=== PATIENT | female | born 1945 | race Caucasian/White ===

== ENCOUNTER 2018-03-15 12:56 | Emergency (ER) | payer MEDICARE, OTHER ==
[2018-03-15 13:45] LABS: ABS Basophils 0.1 10^3/ul (0-0.2); ABS Eosinophils 0.1 10^3/ul (0-0.6); ABS Lymphocytes 2.5 10^3/ul (1.0-4.8); ABS Monocytes 0.3 10^3/ul (0-0.8); ABS Nucleated RBC 0 10^3/ul; Eosinophil % 1.4 % (0-6); Hematocrit 40 % (35-47); Hemoglobin 13.8 g/dl (12.0-16.0); Lymphocyte % 41.6 % (25-47); Mean Corpuscular HGB Conc 35 g/dl (31-36); Mean Corpuscular Hemoglobin 30 pg (27-31); Mean Corpuscular Volume 86 fL (80-97); Mean Platelet Volume 7.1 um3 (7.4-10.4); Nucleated Red Blood Cells % 0.1; Platelet Count 320 10^3/ul (150-450); Red Blood Count 4.64 10^6/ul (4.0-5.4); Red Cell Distribution Width 13 % (10.5-15); White Blood Count 5.9 10^3/ul (3.5-10.8)
[2018-03-15 14:00] LABS: EGFR Non-African American 62.5 (>60)
--- NOTE | 2018-03-15 14:11 | RAD ---
Indication: Headaches. CT of the brain was performed without IV contrast. Ventricular structures are midline. No midline shift is noted. The extraction spaces are unremarkable. There is no evidence of intracranial mass or hemorrhage. No other high or low density lesions are identified. Mastoid air cells and paranasal sinuses are otherwise unremarkable. IMPRESSION: There is no evidence of intracranial mass or hemorrhage present.
[2018-03-15 16:14] VITALS: BP 142/93
--- NOTE | 2018-03-15 19:32 | ED ---
Sugar Toney Thomas, scribed for Juan Rasmussen MD on 03/15/18 at 1358 . Headache - HPI Summary HPI Summary: The patient is a 72 year old female who was playing bridge at 11:30 when she began to develop a dull frontal headache. She describes sparkles in her field of vision. She also reports an inability to recall names that she normally remembers. The patient was also nauseated. All of her symptoms are now relieved except for a mild headache that persists. The patient denies motor weakness. She had a similar headache four days ago. - History Of Current Complaint Chief Complaint: EDHeadache Stated Complaint: HEADACHE-DR SENT Time Seen by Provider: 03/15/18 13:04 Hx Obtained From: Patient Onset/Duration: Started hours ago, Still Present Initially Headache Was: Moderate Currently Pain Is: Mild Timing: Constant Character: Dull Location of Headache: Frontal Aggravating Factor: Nothing Allevating Factors: Nothing Associated Signs And Symptoms: Other (Noted In Comments) - Visual changes, nausea; NEGATIVE: motor weakness - Allergies/Home Medications Allergies/Adverse Reactions: Allergies Allergy/AdvReac Type Severity Reaction Status Date / Time Penicillins Allergy See Comment Verified 03/15/18 13:08 Sulfa (Sulfonamide Allergy See Comment Verified 03/15/18 13:08 Antibiotics) ENVIRONMENTAL/SEASONAL Allergy STUFFY Uncoded 03/15/18 13:08 HAYFEVER Home Medications: Home Medications Janes/D3/Mag11/Zinc/Pot Operator/Jesus/Bor [Caltrate 600+D Plus] 1 tab PO DAILY 03/15/18 [ History Confirmed 03/15/18] Multivitamins/Minerals TAB* [Theragran/minerals TAB*] 1 tab PO DAILY 03/15/18 [ History Confirmed 03/15/18] PMH/Surg Hx/FS Hx/Imm Hx Respiratory History: Reports: Hx Sleep Apnea - current CPAP user GI History: Reports: Hx Gastroesophageal Reflux Disease - OCCASIONAL Musculoskeletal History: Reports: Hx Osteoporosis Sensory History: Reports: Hx Cataracts, Hx Contacts or Glasses - GLASSES Denies: Hx Hearing Aid Opthamlomology History: Reports: Hx Cataracts, Hx Contacts or Glasses - GLASSES Neurological History: Reports: Hx Seizures - HX OF IN 1995 X 1 R/T BACK PROBLEM - Cancer History Hx Chemotherapy: No Hx Radiation Therapy: No - Surgical History Surgery Procedure, Year, and Place: 2011 RIGHT CATARACT EXTRACTION WITH IOL IMPLANT, [facility] [place]. TONSILLECTOMY AGE 7. COLONOSCOPY, [facility] [place] Hx Anesthesia Reactions: Yes - OVER MEDICATED WITH COLONOSCOPY, Infectious Disease History: No Infectious Disease History: Denies: Traveled Outside the [place] in Last 30 Days - Family History Known Family History: Positive: Other - Patient denies relevant FHx - Social History Alcohol Use: Daily Substance Use Type: Reports: None Smoking Status (MU): Never Smoked Tobacco Review of Systems Negative: Fever Eyes: Other - Visual changes Positive: Nausea Neurological: Other - Inability to recall names; NEGATIVE: motor weakness Positive: Headache All Other Systems Reviewed And Are Negative: Yes Physical Exam - Summary Physical Exam Summary: Appearance: The patient is well-nourished in no acute distress and in no acute pain. Skin: The skin is warm and dry and skin color reflects adequate perfusion. HEENT: The head is normocephalic and atraumatic. The pupils are equal and reactive. The conjunctivae are clear and without drainage. Nares are patent and without drainage. Mouth reveals moist mucous membranes and the throat is without erythema and exudate. The external ears are intact. The ear canals are patent and without drainage. The tympanic membranes are intact. Neck: the neck is supple with full range of motion and non-tender. There are no carotid bruits. There is no neck vein distension. Respiratory: Chest is non-tender. Lungs are clear to auscultation and breath sounds are symmetrical and equal. Cardiovascular: Heart is regular rate and rhythm. There is no murmur or rub auscultated. There is no peripheral edema and pulses are symmetrical and equal. Abdomen: The abdomen is soft and non-tender. There are normal bowel sounds heard in all four quadrants and there is no organomegaly palpated. Musculoskeletal: There is no back tenderness noted. Extremities are non-tender with full range of motion. There is good capillary refill. There is no peripheral edema or calf tenderness elicited. Neurological: Patient is alert and oriented to person, place and time. The patient has symmetrical motor strength in all four extremities. Cranial nerves are grossly intact. Deep tendon reflexes are symmetrical and equal in all four extremities. Psychiatric: The patient has an appropriate affect and does not exhibit any anxiety or depression. Triage Information Reviewed: Yes Vital Signs On Initial Exam: Initial Vitals Pulse BP Pulse Ox 96 179/94 100 03/15/18 13:12 03/15/18 13:12 03/15/18 13:12 Vital Signs Reviewed: Yes Diagnostics - Vital Signs Vital Signs Pulse BP Pulse Ox 03/15/18 13:42 93 163/103 100 03/15/18 13:35 96 166/81 100 03/15/18 13:13 94 100 03/15/18 13:12 96 179/94 100 - Laboratory Lab Results: Lab Results 03/15/18 Range/Units 13:38 WBC 5.9 (3.5-10.8) 10^3/ul RBC 4.64 (4.0-5.4) 10^6/ul Hgb 13.8 (12.0-16.0) g/dl Hct 40 (35-47) % MCV 86 (80-97) fL MCH 30 (27-31) pg MCHC 35 (31-36) g/dl RDW 13 (10.5-15) % Plt Count 320 (150-450) 10^3/ul MPV 7.1 L (7.4-10.4) um3 Neut % (Auto) 50.7 (38-83) % Lymph % (Auto) 41.6 (25-47) % [place] % (Auto) 5.4 (0-7) % Eos % (Auto) 1.4 (0-6) % Baso % (Auto) 0.9 (0-2) % Absolute Neuts (auto) 3.0 (1.5-7.7) 10^3/ul Absolute Lymphs (auto) 2.5 (1.0-4.8) 10^3/ul Absolute Monos (auto) 0.3 (0-0.8) 10^3/ul Absolute Eos (auto) 0.1 (0-0.6) 10^3/ul Absolute Basos (auto) 0.1 (0-0.2) 10^3/ul Absolute Nucleated RBC 0 10^3/ul Nucleated RBC % 0.1 Result Diagrams: 03/15/18 13:38 03/15/18 13:38 Lab Statement: Any lab studies that have been ordered have been reviewed, and results considered in the medical decision making process. - Radiology CXR Xray Interpretation: No Acute Changes - IMPRESSION: There is no evidence of intracranial mass or hemorrhage present. Dr. Rasmussen has reviewed this report. Radiology Interpretation Completed By: Radiologist Headache Course/Dx - Course Course Of Treatment: Ms. Baca had an unusual PUTNAM today that had almost completely resolved on arrival to the department. She had a dull frontal PUTNAM that developed shortly after she had 'sparkles' in her vision. She also was having what she describes as 'memory problems' but sound more like an expressive aphasia to me. On arrival she had only a mild frontal PUTNAM. She had a similar PUTNAM 4 days ago except for the memory problems. Her exam was unremarkable. I spoke with Dr. Osorio who felt that htis was likely migrainous and recommended CT and labs which were WNL. He is going to F/U with her in the office. - Diagnoses Provider Diagnoses: Headache - Physician Notifications Discussed Care Of Patient With: Wilian Osorio Time Discussed With Above Provider: 13:57 Instructed by Provider To: Other - Dr. Osorio, neurology, reports that a Code Cooper is not necessary. Discharge - Sign-Out/Discharge Documenting (check all that apply): Discharge/Admit/Transfer - Discharge Plan Condition: Stable Disposition: HOME Patient Education Materials: General Headache (ED) Referrals: Markell Lambert MD [Primary Care Provider] - 3 Days Wilian Osorio MD [Medical Doctor] - 3 Days Additional Instructions: Follow up with your primary care physician in three days. Follow up with Dr. Osorio, neurology, in three days. Return to the emergency department for any new or worsening symptoms. - Billing Disposition and Condition Condition: STABLE Disposition: HOME The documentation as recorded by the Sugar mcmullen Thomas accurately reflects the service I personally performed and the decisions made by me, Juan Rasmussen MD.
== END 2018-03-15 16:14 | disposition home or self-care (01) ==
LOC: ED 12:56
DX: R51 Headache (principal); R11.0 Nausea; Z87.19 Personal history of other diseases of the digestive system
CPT/HCPCS: 36415; 70450; 80053; 85025; 86140; 99283

== ENCOUNTER 2021-05-02 12:35 | Observation (INO) ==
[2021-05-02] MEDS ORDERED: NS 0.9% 1000 ml BAG 1,000 ML IV ONE (13:39)
[2021-05-02 14:33] LABS: ABS Lymphocytes 0.4 10^3/ul (1.0-4.8); ABS Monocytes 0.2 10^3/ul (0-0.8); ABS Neutrophils 2.6 10^3/ul (1.5-7.7); Eosinophil % 0.1 %; Hematocrit 44 % (35-47); Hemoglobin 14.9 g/dL (12.0-16.0); Lymphocyte % 13.8 %; Mean Corpuscular HGB Conc 34 g/dL (31-36); Mean Corpuscular Hemoglobin 30 pg (27-31); Mean Corpuscular Volume 89 fL (80-97); Nucleated Red Blood Cells % 0.5; Red Blood Count 4.91 10^6 /uL (3.70-4.87); Red Cell Distribution Width 14 % (10-15); White Blood Count 3.2 10^3/uL (3.5-10.8)
[2021-05-02 14:40] LABS: ALT 30 U/L (7-52); Albumin 4.6 g/dL (3.2-5.2); Albumin/Globulin Ratio 1.3 (1-3); Alkaline Phosphatase 84 U/L (35-149); Blood Urea Nitrogen 10 mg/dL (6-24); C Reactive Protein 114.21 mg/L (<8.01); CO2 Carbon Dioxide 23 mmol/L (22-32); Calcium 9.1 mg/dL (8.6-10.3); Chloride 86 mmol/L (101-111); EGFR African American 92.8 (>60); EGFR Non-African American 76.7 (>60); Globulin 3.5 g/dL (2-4); Glucose 108 mg/dL (70-100); Total Protein 8.1 g/dL (6.4-8.9)
[2021-05-02 15:08] LABS: Mean Platelet Volume 8.2 fL (7.4-10.4); Platelet Count 64 10^3/uL (150-450)
[2021-05-02 15:24] LABS: Sodium 120 mmol/L (135-145)
[2021-05-02 15:26] LABS: Anion Gap 11 mmol/L (2-11)
[2021-05-02 17:25] LABS: Magnesium 1.7 mg/dL (1.9-2.7); Potassium Redraw 4.1 mmol/L (3.5-5.0)
[2021-05-02 18:06] LABS: Urine Appearance Clear; Urine Bilirubin Negative (Negative); Urine Blood 2+ (Negative); Urine Color Yellow; Urine Glucose Negative (Negative); Urine Ketones 1+ (Negative); Urine Nitrite Negative (Negative); Urine Protein Negative (Negative); Urine Specific Gravity 1.005 (1.002-1.030); Urine Urobilinogen Negative (Negative)
[2021-05-02 18:30] LABS: Urine Bacteria 1+ (Absent); Urine Red Blood Cell 2+(6-10/hpf) (Absent); Urine Squamous Epithelial Cell Present (Absent); Urine White Blood Cell Trace(0-5/hpf) (Absent)
[2021-05-02] MEDS ORDERED: Magnesium Sulfate 2 gm BAG 2 GM/50 ML BAG IVPB ONE (19:18)
[2021-05-02 23:09] LABS: Calcium 8.3 mg/dL (8.6-10.3); EGFR African American 97.4 (>60); EGFR Non-African American 80.5 (>60); Potassium 3.6 mmol/L (3.5-5.0)
[2021-05-02] MEDS ORDERED: NS 0.9% 1000 ml BAG 1,000 ML IV SCH (23:30)
[2021-05-02] MEDS: DOXYcycline 100 MG in NS 0.9% 250 ml 250 ML IVPB SCH (23:39)
[2021-05-03 06:45] LABS: Albumin 3.6 g/dL (3.2-5.2); Albumin/Globulin Ratio 1.3 (1-3); Calcium 8.4 mg/dL (8.6-10.3); EGFR African American 102.3 (>60); EGFR Non-African American 84.6 (>60); Globulin 2.7 g/dL (2-4); Total Bilirubin 0.9 mg/dL (0.2-1.0); Total Protein 6.3 g/dL (6.4-8.9)
[2021-05-03 06:46] LABS: ABS Lymphocytes 0.7 10^3/ul (1.0-4.8); ABS Monocytes 0.3 10^3/ul (0-0.8); ABS Neutrophils 1.2 10^3/ul (1.5-7.7); Eosinophil % 0.1 %; Hematocrit 39 % (35-47); Hemoglobin 13.5 g/dL (12.0-16.0); Mean Corpuscular HGB Conc 35 g/dL (31-36); Mean Corpuscular Hemoglobin 30 pg (27-31); Mean Corpuscular Volume 86 fL (80-97); Mean Platelet Volume 8.2 fL (7.4-10.4); Nucleated Red Blood Cells % 0.5; Platelet Count 54 10^3/uL (150-450); Red Blood Count 4.47 10^6 /uL (3.70-4.87); Red Cell Distribution Width 14 % (10-15); White Blood Count 2.2 10^3/uL (3.5-10.8)
[2021-05-03] MEDS: CMC:Simvastatin 10 mg TAB (NF) PO SCH (09:02)
[2021-05-03] MEDS: DOXYcycline 100 MG in NS 0.9% 250 ml 250 ML IVPB SCH ×2 (10:51→23:04)
[2021-05-03] MEDS ORDERED: NS 0.9% 1000 ml BAG 1,000 ML IV SCH (18:15)
[2021-05-04 05:44] LABS: ABS Lymphocytes 1.9 10^3/ul (1.0-4.8); ABS Monocytes 0.5 10^3/ul (0-0.8); ABS Neutrophils 1.1 10^3/ul (1.5-7.7); Eosinophil % 0.2 %; Hematocrit 35 % (35-47); Hemoglobin 12.5 g/dL (12.0-16.0); Lymphocyte % 53.3 %; Mean Corpuscular HGB Conc 36 g/dL (31-36); Mean Corpuscular Hemoglobin 30 pg (27-31); Mean Corpuscular Volume 85 fL (80-97); Mean Platelet Volume 8.1 fL (7.4-10.4); Platelet Count 63 10^3/uL (150-450); Red Cell Distribution Width 14 % (10-15); White Blood Count 3.6 10^3/uL (3.5-10.8)
[2021-05-04 05:51] LABS: Calcium 8.1 mg/dL (8.6-10.3); EGFR African American 104.1 (>60); Magnesium 1.8 mg/dL (1.9-2.7); Potassium 3.8 mmol/L (3.5-5.0)
[2021-05-04] MEDS ORDERED: Magnesium Sulfate 2 gm BAG 2 GM/50 ML BAG IVPB ONE (07:22)
[2021-05-04 08:31] LABS: RBC Morphology Normal (Normal)
[2021-05-04] MEDS: CMC:Simvastatin 10 mg TAB (NF) PO SCH (10:00)
[2021-05-04] MEDS: DOXYcycline 100 MG in NS 0.9% 250 ml 250 ML IVPB SCH (11:09)
[2021-05-04 12:06] VITALS: BP 139/71
[2021-05-06 17:39] LABS: Anaplasma phagocytophilum Positive (Negative); B. miyamotoi PCR, B Negative (Negative); Babesia divergens/MO-1 Negative (Negative); Babesia ducani Negative (Negative); Ehrlichia chaffeensis Negative (Negative); Ehrlichia ewingii/canis Negative (Negative); Ehrlichia muris eauclairensis Negative (Negative)
== END 2021-05-04 13:40 | disposition home or self-care (01) ==
LOC: ED 12:35 → MED 12:35
PROVIDERS: ADMIT Hospitalist; ATTEND Hospitalist